=== PATIENT | female | born 1965 | race Caucasian/White ===

== ENCOUNTER 2016-05-21 13:25 | Day surgery (SDC) | payer BC ==
[~2016-05-21] VITALS: Ht 152.4 cm; Wt 60.3 kg
[2016-05-21 14:34] VITALS: Ht 152.4 cm; Wt 60.3 kg
[2016-05-21] MEDS ORDERED: SERT50TA6 PO (14:49)
[2016-05-21] MEDS ORDERED: PERP8TAB PO (14:50)
[2016-05-21] MEDS ORDERED: FERR325C PO (14:50)
[2016-05-21 15:18] VITALS: BP 100/61; PULSE 74; RESP 13
[2016-05-21] MEDS ORDERED: PHENYLephrine (100 MCG/ML) 5ML SYG ONE (16:05)
[2016-05-21] MEDS ORDERED: PROPOFOL 20 ML ONE ×2 (16:05→16:12)
[2016-05-21 16:44] VITALS: BP 98/66; RESP 20
--- NOTE | 2016-05-22 05:45 | GILP ---
DATE OF PROCEDURE: 05/21/2016 NAME OF PROCEDURE: Colonoscopy with polyp ablation x2. PREMEDICATION: Monitored anesthesia care by anesthesiologist. SURGEON: Phyllis Berry MD INSTRUMENT USED: Olympus colonoscope. PREPARATION: Adequate. TECHNIQUE: After informed consent, with the patient/relatives understanding the procedure, its indic ations potential risks and complications, including but not limited to: allergic reaction, bleeding, perforation, infection, missed lesions and after all pertinent questions were answered to the patie nt's satisfaction, the patient/relatives signed the witnessed informed consent. Following this, premedication was administered slowly IV push by under careful cardiovascular and re spiratory monitoring with pulse oximetry, automatic blood pressure and electronic device monitor. Once the sedativ e effect was achieved, the patient was placed in the left lateral decubitus position, digital rectal examination was performed. The colonoscope was then introduced and advanced under visual control th roughout all segments of the colon including: the rectum, sigmoid, descending colon, splenic flexure , transverse colon, hepatic flexure, ascending colon and finally reaching the cecum which was clearl y identified by transillumination, finger indentation and the ileocecal valve. Careful examination o f the mucosa of the lower gastrointestinal tract both on insertion as well as withdrawal of the inst rument disclosed the following findings: FINDINGS: Rectal Examination: No evidence of perirectal disease, no masses. Colonic Mucosa: The colonic mucosa is remarkable for the presence of a 4 mm polyp in the descending colon which was completely ablated with biopsy forceps. Second polyp measuring again 4 mm was note d in the ascending colon, and it was also ablated completely with biopsy forceps. The remainder of the colonic mucosa is unremarkable. The ileocecal valve was clearly identified as was the appendice al orifice. The instrument was withdrawn reexamining the mucosa in detail. No additional abnormali ties were noted with the exception of occasional diverticulum on the left side of the colon and smal l internal hemorrhoids. The instrument was then withdrawn, the patient tolerated the procedure well and was transferred out of the [facility] awake and in good condition to continue recovery under observation. IMPRESSION: 1. A 4 mm polyp in the descending colon, ablated. 2. A 4 mm polyp in the ascending colon, ablated. 3. Mild diverticulosis left side of the colon. 4. Small internal hemorrhoids of no clinical significance. PLAN: Pathology will be reviewed as soon as available. Surveillance colonoscopy in 5 years is roshan mmended. Dictated By: PHYLLIS SALAZAR Conf#: [id number] DID#: [id number]
== END 2016-05-21 16:57 | disposition home or self-care (01) ==
LOC: GIL 13:25
PROVIDERS: ATTEND Internal Medicine Gastroenterology
DX: Z12.11 Encounter for screening for malignant neoplasm of colon (principal); D12.2 Benign neoplasm of ascending colon; D12.4 Benign neoplasm of descending colon; K57.90 Diverticulosis of intestine, part unspecified, without perforation or abscess without bleeding; K64.8 Other hemorrhoids
CPT/HCPCS: 45380; 84703; 88305; J2370; Z7610